=== PATIENT | male | born 2000 | race Caucasian/White ===

== ENCOUNTER 2023-01-01 18:28 | Emergency (ER) | payer BC, SELFPAY ==
[2023-01-01] VITALS (18 sets, daily range): BP systolic 110–134; BP diastolic 80–99; PULSE 66–100; RESP 13–27; TEMP 36.7; O2SAT 98–100
--- NOTE | ~2023-01-01 | XR_ITS ---
EXAMINATION: XR chest 2V Exam Date/Time: 01/01/2023 19:20 CDT HISTORY: CP, palpitations Comparison: None. RESULT: Lines, tubes, and devices: None. Lungs and pleura: Clear. Cardiomediastinal silhouette: Normal. Other: No acute osseous or upper abdominal finding. IMPRESSION: No acute cardiopulmonary process. Reviewed, dictated and finalized at location K.
--- NOTE | 2023-01-01 18:29 | ECG_ITS ---
Measurements Intervals [place] Rate: 68 P: 61 [place]: 152 QRS: 39 QRSD: 118 T: 46 QT: 402 QTc: 428 Interpretive Statements SINUS RHYTHM WITH SINUS ARRHYTHMIA OTHERWISE NORMAL ECG NO PREVIOUS ECG AVAILABLE FOR COMPARISON Electronically Signed On 01-02-2023 17:02:26 CDT by Keith Phoenix M.D.
--- NOTE | 2023-01-01 19:39 | ED.ARRPALP ---
HPI - Arrhythmia/Palpitations General Chief Complaint: Arrhythmia/Palpitations Stated Complaint: chest discomfort, heart palpitations Time Seen by Provider: 01/01/23 18:41 History of Present Illness HPI narrative: Patient is a 22-year-old male presenting with palpitations. Patient states that for the last year he has had intermittent heart palpitations associated with chest pain. Patient states that he has anxiety and he used to be on fluoxetine but he stopped this about a month ago. States that he has been using propanolol as needed for his anxiety which does seem to help. He has been having more frequent bouts of palpitations so he had a telehealth appointment today and they advised that he come in for evaluation. States that sometimes he has left sided sharp chest pain that is worse with positional changes. States that his mom was recently diagnosed with thyroid cancer and he was concerned about his thyroid. He denies headaches, fevers, numbness or weakness, shortness of breath, cough, abdominal pain, vomiting, dysuria, leg swelling. Related Data Home Medications Medication Instructions Recorded Confirmed propranolol 10 mg tablet mg 01/01/23 01/01/23 Allergies Allergy/AdvReac Type Severity Reaction Status Date / Time amoxicillin Allergy Unknown Unknown Verified 01/01/23 18:44 Review of Systems Review of Systems: All systems reviewed & are unremarkable except as noted in HPI and below PMFSH Family History Family History Other Diabetes mellitus Family history of arthritis Hypertension Social History Social History Smoking status: Never smoker Alcohol intake: never Exam Narrative: GENERAL: Well-appearing, well-nourished, and in no acute distress. HEAD: Normocephalic, atraumatic. EYES: PERRLA and EOMI. ENT: Nares clear, no rhinorrhea or epistaxis. Mucous membranes moist. NECK: Supple. CHEST: Clear to auscultation. No respiratory distress. HEART: Regular rate and rhythm. No murmur heard. Normal peripheral pulses. ABDOMEN: Soft, nontender, nondistended EXTREMITIES: Normal range of motion. No edema. SKIN: Warm, dry, no rash. NEURO: No focal deficits. Alert and oriented x3. PSYCH: Normal mood and affect. Course Vital Signs Vital signs: Vital Signs Temperature 98.1 F 01/01/23 18:33 Pulse Rate 66 01/01/23 18:33 Respiratory Rate 16 01/01/23 18:33 Blood Pressure 134/99 H 01/01/23 18:33 Pulse Oximetry 100 01/01/23 18:33 Oxygen Delivery Room Air 01/01/23 18:33 Temperature 98.1 F 01/01/23 18:33 Pulse Rate 86 01/01/23 21:30 Respiratory Rate 24 H 01/01/23 21:30 Blood Pressure 110/80 01/01/23 21:33 Pulse Oximetry 100 01/01/23 21:30 Oxygen Delivery Room Air 01/01/23 18:33 MDM - Arrhythmia/Palpitations MDM Narrative Medical decision making narrative: Patient is a 22-year-old male presenting with increasingly frequent palpitations. Vitals within normal limits. Patient is nontoxic and in no acute distress. Exam is remarkable for the above. EKG per my interpretation shows normal sinus rhythm, normal axis, moderate IVCD, no ST elevations or depressions. No QTc prolongation or VA abnormalities. Blood work is unremarkable. Thyroid levels are normal. Chest x-ray shows no acute abnormalities. Patient has remained on the monitor and has not had any arrhythmias. States that he does still feel a bit anxious. We will give him a dose of Atarax and a short prescription to be used as needed. Advise close PCP follow-up. He may benefit from a Holter monitor in the future. Strict return precautions given. Patient voiced understanding and is agreeable with plan. Discharged in stable condition. Differential Diagnosis Differential diagnosis: Likely palpitations, anxiety, sinus tachycardia, artial fibrillation and artial flutter Medical Records Attesta
[2023-01-01] MEDS: SODIUM CHLORIDE 0.9% IV 1,000 ML 999 ML IV CONT (19:49)
[2023-01-01 20:00] LABS: Basophils Percent Auto 0.3 % (0.2-1.2); Eosinophils Absolute Auto 0.2 K/mm3 (0-0.3); Eosinophils Percent Auto 1.9 % (0-4.4); Hematocrit 44.7 % (42.0-52.0); Immature Granulocyte Absolute 0.02 K/mm3 (0.00-0.031); Immature Granulocyte Percent A 0.2 % (0-0.5); Lymphocytes Absolute Auto 1.81 K/mm3 (0.9-3.2); Lymphocytes Percent Auto 21.1 % (18.3-44.2); Mean Corpuscular HGB Conc 33.6 g/dl (32-36); Mean Corpuscular Hemoglobin 28.5 pg (26-34); Mean Platelet Volume 10.7 fl (7.4-10.4); Monocytes Absolute Auto 0.6 K/mm3 (0.1-0.6); Monocytes Percent Auto 6.4 % (2.6-8.5); Neutrophils Percent Auto 70.1 % (45.5-73.1); Platelet Count Result 218 k/mm3 (150-375); Red Blood Count 5.26 M/mm3 (4.6-6.20); White Blood Count 8.6 K/mm3 (4.5-10.0)
[2023-01-01 20:10] LABS: Alanine Aminotransferase 23 U/L (6-50); Albumin Level 5.2 g/dL (3.5-5.1); Alkaline Phosphatase 102 U/L (38-126); Anion Gap 8 mmol/L (8-16); Aspartate Amino Transferase 26 U/L (17-59); Bilirubin,Total 0.6 mg/dL (0.2-1.3); Blood Urea Nitrogen 10 mg/dL (9-20); Calcium 9.5 mg/dL (8.4-10.2); Carbon Dioxide 29 mmol/L (22-30); Chloride 103 mmol/L (98-107); Estimated CRCL calculation 116 ml/min; Estimated Glomerular Filt Rate > 60; Glucose 102 mg/dL (65-110); Lipase 45 U/L (23-300); Magnesium 2.3 mg/dL (1.6-2.3); Potassium 3.9 mmol/L (3.4-5.0); Sodium 140 mmol/L (137-145)
[2023-01-01 20:22] LABS: Troponin I < 0.012 ng/mL (0.000-0.034)
[2023-01-01] MEDS: hydrOXYzine HCL 25 MG TABLET PO (21:30)
== END 2023-01-01 21:39 | disposition home or self-care (01) ==
PROVIDERS: Emergency Provider Emergency Medicine
DX: R00.2 Palpitations (principal); F41.9 Anxiety disorder, unspecified
CPT/HCPCS: 36415; 71046; 80053; 83690; 83735; 84443; 84484; 85025; 93005; 96360; 99284; A9270; J7030